=== PATIENT | female | born 1960 | race Caucasian/White ===

== ENCOUNTER 2019-11-17 19:27 | Emergency (ER) | payer OTHER, SELFPAY ==
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
[2019-11-17 19:55] VITALS: BP 108/58; PULSE 85; RESP 16; TEMP 37; O2SAT 99
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
--- NOTE | 2019-11-17 20:15 | ECG_ITS ---
Measurements Intervals [place] Rate: 70 P: 81 [place]: 166 QRS: 84 QRSD: 92 T: 59 QT: 389 QTc: 421 Interpretive Statements SINUS RHYTHM WITH SINUS ARRHYTHMIA BASELINE ARTIFACT- I, II, III, AVR, AVL, AVF, V1-V6 NORMAL ECG Electronically Signed On 11-18-2019 7:39:41 CDT by Kendell Barrios D.O.
--- NOTE | 2019-11-17 21:01 | PC.NURSE ---
PT DECLINES USE OF ZOFRAN AND MORPHINE. STATES THAT SHE JUST WANTS TO GO HOME. PT RESPIRATORY STATUS REMAINS STABLE AND UNCHANGED. SPO2 99%
[2019-11-17 21:08] LABS: Alanine Aminotransferase 20 U/L (14-59); Albumin Level 3.8 g/dL (3.4-5.0); Alkaline Phosphatase 72 U/L (46-116); Anion Gap 13.7 mmol/L (7-16); Aspartate Amino Transferase 27 U/L (15-37); Bilirubin,Total 0.7 mg/dL (0.00-1.00); Blood Urea Nitrogen 17 mg/dL (7-18); Carbon Dioxide 27 mmol/L (21-32); Chloride 105 mmol/L (98-108); Estimated Glomerular Filt Rate > 60; Glucose 93 mg/dL (70-99); Osmolality Calculated 295 mOsm/kg (285-295); Potassium 3.7 mmol/L (3.5-5.1); Sodium 142 mmol/L (136-145); Total Protein 6.7 g/dL (6.4-8.2)
[2019-11-17 21:14] LABS: Troponin I < 0.02 ng/mL (0.00-0.056)
[2019-11-17 22:48] VITALS: BP 100/53
== END 2019-11-17 22:49 | disposition home or self-care (01) ==
PROVIDERS: Emergency Provider Family Medicine; PCP Nurse Practitioner
DX: S22.42XA Multiple fractures of ribs, left side, initial encounter for closed fracture (principal); S81.812A Laceration without foreign body, left lower leg, initial encounter; V49.40XA Driver injured in collision with unspecified motor vehicles in traffic accident, initial encounter
CPT/HCPCS: 36415; 71260; 73590; 74160; 80053; 84484; 93005; 96374; 99284; A9270; J0696; Q9965